=== PATIENT | male | born 1970 | race Caucasian/White ===

== ENCOUNTER → 2017-05-20 | Outpatient (REF) | LOC: WSOH 08:16 | DX: Z00.00 Encounter for general adult medical examination without abnormal findings (principal) ==

== ENCOUNTER 2021-12-06 10:51 | Emergency (ER) | payer BC ==
[~2021-12-06] VITALS: Ht 180.3 cm; Wt 104.5 kg
[2021-12-06 11:21] VITALS: BP 153/90; TEMP 98.2
[2021-12-06] MEDS ORDERED: ZOCOR 40MG40 MG PO (11:45)
[2021-12-06] MEDS ORDERED: PRINIVIL5 MG PO (11:46)
[2021-12-06] MEDS ORDERED: GLUCOPHAGE500 MG/TAB PO (11:46)
[2021-12-06] MEDS ORDERED: NEXIUM 40MG40 MG PO (11:47)
[2021-12-06] MEDS ORDERED: LIORESAL 1010 MG/TAB PO (11:48)
[2021-12-06] MEDS ORDERED: ZANAFLEX CAPSULE4 MG PO (12:18)
[2021-12-06 12:43] VITALS: PULSE 65
== END 2021-12-06 12:43 | disposition home or self-care (01) ==
LOC: COL.ER 10:51
DX: M62.838 Other muscle spasm (principal)